=== PATIENT | female | born 1960 | race Caucasian/White ===

== ENCOUNTER → 2016-11-18 | Outpatient (CLI) | payer MEDICARE ==
--- NOTE | 2016-11-20 08:31 | MM ---
Reason for exam: screening (asymptomatic). Last mammogram was performed 1 year and 5 months ago. History: Patient is postmenopausal. Family history of breast cancer in maternal aunt at age 40. Benign core biopsy of the right breast. Took estrogen for 2 years. Physical Findings: Nurse did not find any significant physical abnormalities on exam. MG 3D Screening Mammo W/Cad Bilateral CC and MLO view(s) were taken. Prior study comparison: June 21, 2015, bilateral MG screening mammo w CAD. July 30, 2012, bilateral digital screening mammo w/CAD. August 02, 2010, bilateral digital screening mammogram. The breast tissue is heterogeneously dense. This may lower the sensitivity of mammography. There is chronic nodularity in the right breast. No significant changes when compared with prior studies. ASSESSMENT: Negative, BI-RAD 1 RECOMMENDATION: Routine screening mammogram of both breasts in 1 year.
== END | disposition home or self-care (01) ==
LOC: RADMAMWWP 15:02
PROVIDERS: ATTEND Obstetrics & Gynecology
DX: Z12.31 Encounter for screening mammogram for malignant neoplasm of breast (principal)
CPT/HCPCS: 77063; G0202

== ENCOUNTER → 2018-03-12 | Outpatient (CLI) | payer MEDICARE | END | disposition home or self-care (01) | LOC: LABWHC1 11:33 | PROVIDERS: ATTEND Psychiatry & Neurology Neurology | DX: G25.81 Restless legs syndrome (principal); T46.6X5A Adverse effect of antihyperlipidemic and antiarteriosclerotic drugs, initial encounter | CPT/HCPCS: 36415; 82550; 82728; 83540 ==

== ENCOUNTER → 2020-07-24 | Outpatient (CLI) | payer MEDICARE ==
--- NOTE | 2020-07-26 09:21 | MM ---
Reason for exam: screening (asymptomatic). Last mammogram was performed 3 years and 8 months ago. History: Patient is postmenopausal and history of other cancer. Family history of breast cancer in maternal aunt at age 40. Benign core biopsy of the right breast. Took estrogen for 2 years. Physical Findings: A clinical breast exam by your physician is recommended on an annual basis and results should be correlated with mammographic findings. MG 3D Screening Mammo W/Cad Bilateral CC and MLO view(s) were taken. Prior study comparison: November 18, 2016, bilateral MG 3d screening mammo w/cad. June 21, 2015, bilateral MG screening mammo w CAD. The breast tissue is heterogeneously dense. This may lower the sensitivity of mammography. There is chronic nodularity in the right breast. Lateral subareolar left CC view asymmetric density is more defined and incompletely disperses on 3D images. Second similar area laterally at a middle depth also on the left. ASSESSMENT: Incomplete: need additional imaging evaluation, BI-RAD 0 RECOMMENDATION: Special view mammogram of the left breast. (3D) If lesion persists on supplemental views, image directed ultrasound is recommended. [facility] will attempt to contact patient to return for supplemental views and ultrasound if indicated.
== END | disposition home or self-care (01) ==
LOC: RADMAMWWP 10:17
PROVIDERS: ATTEND Internal Medicine
DX: Z12.31 Encounter for screening mammogram for malignant neoplasm of breast (principal)
CPT/HCPCS: 77063; 77067

== ENCOUNTER → 2020-07-31 | Outpatient (CLI) | payer MEDICARE ==
--- NOTE | 2020-07-31 09:43 | MM ---
Reason for exam: additional evaluation requested from abnormal screening. Last mammogram was performed less than 1 month ago. History: Patient is postmenopausal and history of other cancer. Family history of breast cancer in maternal aunt at age 40. Benign excisional biopsy of the right breast. Took estrogen for 2 years. Physical Findings: Nurse did not find any significant physical abnormalities on exam. MG 3D Work Up W/Cad LT Spot compression CC, spot compression MLO, CCRL, and ML view(s) were taken of the left breast. Prior study comparison: July 24, 2020, bilateral MG 3d screening mammo w/cad. November 18, 2016, bilateral MG 3d screening mammo w/cad. There is no discrete abnormality including area of concern. These results were verbally communicated with the patient and result sheet given to the patient on 07/31/20. ASSESSMENT: Probably benign, BI-RAD 3 RECOMMENDATION: Follow-up diagnostic mammogram of the left breast in 6 months. Manage on a clinical basis with regard to left axilla dimple.
== END | disposition home or self-care (01) ==
LOC: RADMAMWWP 08:19
PROVIDERS: ATTEND Internal Medicine
DX: R92.8 Other abnormal and inconclusive findings on diagnostic imaging of breast (principal)
CPT/HCPCS: 77065; G0279; 77061

== ENCOUNTER → 2021-02-06 | Outpatient (CLI) | payer MEDICARE ==
--- NOTE | 2021-02-06 11:31 | MM ---
Reason for exam: follow-up at short interval from prior study. Last mammogram was performed 6 months ago. History: Patient is postmenopausal and history of other cancer. Family history of breast cancer in maternal aunt at age 40. Benign excisional biopsy of the right breast. Took estrogen for 2 years. Physical Findings: Nurse did not find any significant physical abnormalities on exam. MG 3D Diag Mammo W/Cad LT CC and MLO view(s) were taken of the left breast. Prior study comparison: July 31, 2020, left breast MG 3d work up w/cad LT. July 24, 2020, bilateral MG 3d screening mammo w/cad. The breast tissue is heterogeneously dense. This may lower the sensitivity of mammography. Nodule 12mm 2 o'clock 2.5cm from nipple, probably dense tissue. These results were verbally communicated with the patient and result sheet given to the patient on 02/06/21. ASSESSMENT: Incomplete: need additional imaging evaluation, BI-RAD 0 RECOMMENDATION: Ultrasound of the left breast.
--- NOTE | 2021-02-06 11:33 | USB ---
Reason for exam: additional evaluation requested from abnormal screening. History: Patient is postmenopausal and history of other cancer. Family history of breast cancer in maternal aunt at age 40. Benign excisional biopsy of the right breast. Took estrogen for 2 years. US Breast Limited LT Technologist: Erin Guerra Left limited breast ultrasound including focal area of concern, retroareolar and axilla demonstrates no cystic or solid lesion seen. No sonographic correlate. Follow up in 6 months. Due for bilateral. These results were verbally communicated with the patient and result sheet given to the patient on 02/06/21. ASSESSMENT: Probably benign, BI-RAD 3 RECOMMENDATION: Follow-up diagnostic mammogram of both breasts in 6 months.
== END | disposition home or self-care (01) ==
LOC: RADMAMWWP 08:06
PROVIDERS: ATTEND Internal Medicine
DX: R92.2 Inconclusive mammogram (principal); Z78.0 Asymptomatic menopausal state; Z80.3 Family history of malignant neoplasm of breast
CPT/HCPCS: 77065; 76642; G0279; 77061

== ENCOUNTER 2022-05-06 20:59 | Emergency (ER) | payer MEDICARE ==
[2022-05-06 21:10] VITALS: TEMP 98.1
--- NOTE | 2022-05-06 21:51 | ED ---
Dizziness HPI - General Chief Complaint: Dizziness Stated Complaint: Vertigo, Dizziness Time Seen by Provider: 05/06/22 21:11 Source: patient Mode of arrival: ambulatory Limitations: no limitations - History of Present Illness Initial Comments: This patient is a 62-year-old woman who presents with chief complaint of feeling dizzy going on her third day. The patient states that it as a spinning sensation. She states that at times it feels like she can't control her eyes. It tends to be made worse with rolling in bed or with getting up or sitting down rapidly. The patient denies any headache. She has not noted any weakness or numbness of the extremities or any change in speech or sensation. MD Complaint: dizziness Onset/Timin -: days(s) Timing: sudden onset Description: "room spinning", difficulty walking History of Same: No History of Trauma: No Severity: moderate Improves With: remaining still Worsens With: movement Associated Symptoms: denies other symptoms - Related Data Previous Rx's Medication Instructions Recorded Meclizine [Antivert] 25 mg PO TID PRN #15 tab 05/07/22 Allergies Allergy/AdvReac Type Severity Reaction Status Date / Time No Known Allergies Allergy Verified 05/06/22 21:10 Review of Systems ROS Statement: Those systems with pertinent positive or pertinent negative responses have been documented in the HPI. ROS Other: All systems not noted in ROS Statement are negative. Constitutional: Denies: fever, chills, weakness Eyes: Denies: eye pain, vision change ENT: Denies: ear pain, hearing loss Respiratory: Denies: cough, dyspnea Cardiovascular: Denies: chest pain, palpitations, orthopnea, edema, syncope Gastrointestinal: Reports: nausea. Denies: abdominal pain, vomiting, diarrhea Genitourinary: Denies: dysuria, hematuria Musculoskeletal: Denies: back pain Skin: Denies: rash Neurological: Reports: vertigo. Denies: headache, weakness, numbness, paresthesias Past Medical History Past Medical History: Cancer, CVA/TIA, Hypertension Additional Past Medical History / Comment(s): Restless leg, uterine CA History of Any Multi-Drug Resistant Organisms: None Reported Past Surgical History: Cholecystectomy, Orthopedic Surgery Past Psychological History: No Psychological Hx Reported Smoking Status: Current every day smoker Past Alcohol Use History: Occasional Past Drug Use History: Marijuana General Exam Limitations: no limitations General appearance: alert, in no apparent distress Head exam: Present: atraumatic, normocephalic Eye exam: Present: normal appearance, PERRL, EOMI, nystagmus. Absent: scleral icterus, conjunctival injection ENT exam: Present: normal oropharynx Neck exam: Present: normal inspection, full ROM. Absent: meningismus Respiratory exam: Present: normal lung sounds bilaterally. Absent: respiratory distress, wheezes, rales, rhonchi, stridor Cardiovascular Exam: Present: regular rate, normal rhythm, normal heart sounds. Absent: systolic murmur, diastolic murmur, rubs, gallop GI/Abdominal exam: Present: soft. Absent: distended, tenderness, guarding, rebound, rigid, mass Extremities exam: Present: normal inspection, normal capillary refill. Absent: pedal edema, calf tenderness Back exam: Present: normal inspection Neurological exam: Present: alert, oriented X3, CN II-XII intact. Absent: motor sensory deficit Skin exam: Present: warm, dry, intact, normal color. Absent: rash Course Vital Signs 05/06/22 21:06 Temperature 98.1 F Pulse Rate 83 Respiratory 24 Rate Blood Pressure 217/109 O2 Sat by Pulse 97 Oximetry EKG Findings - EKG Results: EKG: interpreted by ERMD, sinus rhythm (Rate 68 bpm), normal axis, normal QRS, normal ST/T, no acute changes Medical Decision Making - Lab Data Result diagrams: 05/06/22 22:09 05/06/22 22:09 Lab Results 05/06/22 05/06/22 05/06/22 Range/Units 22:09 22:09 22:09 WBC 4.5 (3.8-10.6) k/uL RBC 3.89 (3.80-5.40) m/uL Hgb 13.1 (11.4-16.0) gm/dL Hct 39.3 (34.0-46.0) % MCV 101.1 H (80.0-100.0) fL MCH 33.6 (25.0-35.0) pg MCHC 33.2 (31.0-37.0) g/dL RDW 13.6 (11.5-15.5) % Plt Count 266 (150-450) k/uL MPV 6.6 Neutrophils % 42 % Lymphocytes % 41 % Monocytes % 6 % Eosinophils % 6 % Basophils % 1 % Neutrophils # 1.9 (1.3-7.7) k/uL Lymphocytes # 1.9 (1.0-4.8) k/uL Monocytes # 0.3 (0-1.0) k/uL Eosinophils # 0.3 (0-0.7) k/uL Basophils # 0.1 (0-0.2) k/uL Macrocytosis Slight PT 9.9 (9.0-12.0) sec INR 0.9 (<1.2) APTT 23.6 (22.0-30.0) sec Sodium 136 L (137-145) mmol/L Potassium 4.2 (3.5-5.1) mmol/L Chloride 100 (98-107) mmol/L Carbon Dioxide 27 (22-30) mmol/L Anion Gap 9 mmol/L BUN 17 (7-17) mg/dL Creatinine 0.65 (0.52-1.04) mg/dL Est GFR (CKD-EPI)AfAm >90 (>60 ml/min/1.73 sqM) Est GFR (CKD-EPI)NonAf >90 (>60 ml/min/1.73 sqM) Glucose 103 H (74-99) mg/dL Calcium 9.5 (8.4-10.2) mg/dL Total Bilirubin 0.2 (0.2-1.3) mg/dL AST 21 (14-36) U/L ALT 11 (4-34) U/L Alkaline Phosphatase 71 (38-126) U/L Troponin I (0.000-0.034) ng/mL Total Protein 6.7 (6.3-8.2) g/dL Albumin 4.2 (3.5-5.0) g/dL 05/06/22 Range/Units 22:09 WBC (3.8-10.6) k/uL RBC (3.80-5.40) m/uL Hgb (11.4-16.0) gm/dL Hct (34.0-46.0) % MCV (80.0-100.0) fL MCH (25.0-35.0) pg MCHC (31.0-37.0) g/dL RDW (11.5-15.5) % Plt Count (150-450) k/uL MPV Neutrophils % % Lymphocytes % % Monocytes % % Eosinophils % % Basophils % % Neutrophils # (1.3-7.7) k/uL Lymphocytes # (1.0-4.8) k/uL Monocytes # (0-1.0) k/uL Eosinophils # (0-0.7) k/uL Basophils # (0-0.2) k/uL Macrocytosis PT (9.0-12.0) sec INR (<1.2) APTT (22.0-30.0) sec Sodium (137-145) mmol/L Potassium (3.5-5.1) mmol/L Chloride (98-107) mmol/L Carbon Dioxide (22-30) mmol/L Anion Gap mmol/L BUN (7-17) mg/dL Creatinine (0.52-1.04) mg/dL Est GFR (CKD-EPI)AfAm (>60 ml/min/1.73 sqM) Est GFR (CKD-EPI)NonAf (>60 ml/min/1.73 sqM) Glucose (74-99) mg/dL Calcium (8.4-10.2) mg/dL Total Bilirubin (0.2-1.3) mg/dL AST (14-36) U/L ALT (4-34) U/L Alkaline Phosphatase (38-126) U/L Troponin I <0.012 (0.000-0.034) ng/mL Total Protein (6.3-8.2) g/dL Albumin (3.5-5.0) g/dL Disposition Clinical Impression: Vertigo, Carotid stenosis Disposition: HOME SELF-CARE Condition: Good Instructions (If sedation given, give patient instructions): Vertigo (ED) Prescriptions: Meclizine [Antivert] 25 mg PO TID PRN #15 tab PRN Reason: Vertigo Is patient prescribed a controlled substance at d/c from ED?: No Referrals: Grabiel Belcher MD [Primary Care Provider] - 1-2 days Lisa Hunt DO [STAFF PHYSICIAN] - 1-2 days Brett Aguilera MD [STAFF PHYSICIAN] - 1-2 days
[2022-05-06 22:28] LABS: Basophils # (A) 0.1 k/uL (0-0.2); Basophils % (A) 1 %; Eosinophils # (A) 0.3 k/uL (0-0.7); Eosinophils % (A) 6 %; HCT 39.3 % (34.0-46.0); HGB 13.1 gm/dL (11.4-16.0); Lymphocytes # (A) 1.9 k/uL (1.0-4.8); Lymphocytes % (A) 41 %; MCH 33.6 pg (25.0-35.0); MCHC 33.2 g/dL (31.0-37.0); MCV 101.1 fL (80.0-100.0); Macrocytosis Slight; Mean Platelet Volume 6.6; Monocytes # (A) 0.3 k/uL (0-1.0); Monocytes % (A) 6 %; Neutrophils # (A) 1.9 k/uL (1.3-7.7); Neutrophils % (A) 42 %; Platelet Count 266 k/uL (150-450); RBC 3.89 m/uL (3.80-5.40); RDW 13.6 % (11.5-15.5); WBC 4.5 k/uL (3.8-10.6)
[2022-05-06 22:39] LABS: INR 0.9 (<1.2); Partial Thromboplastin Time 23.6 sec (22.0-30.0); Prothrombin Time 9.9 sec (9.0-12.0)
[2022-05-06 22:42] LABS: ALT 11 U/L (4-34); AST 21 U/L (14-36); African American GFR (CKD) >90 (>60 ml/min/1.73 sqM); Albumin 4.2 g/dL (3.5-5.0); Alkaline Phosphatase 71 U/L (38-126); Anion Gap 9 mmol/L; Blood Urea Nitrogen 17 mg/dL (7-17); Calcium 9.5 mg/dL (8.4-10.2); Carbon Dioxide 27 mmol/L (22-30); Chloride 100 mmol/L (98-107); Glucose 103 mg/dL (74-99); Non-African American GFR(CKD) >90 (>60 ml/min/1.73 sqM); Potassium 4.2 mmol/L (3.5-5.1); Sodium 136 mmol/L (137-145); Total Bilirubin 0.2 mg/dL (0.2-1.3); Total Protein 6.7 g/dL (6.3-8.2)
--- NOTE | 2022-05-06 23:17 | CT ---
EXAMINATION TYPE: CT brain wo con for TPA DATE OF EXAM: 05/06/2022 COMPARISON: None HISTORY: stroke symptoms. CT DLP: 1456.3 mGycm Automated exposure control for dose reduction was used. Images obtained of the brain with no contrast. Ventricles have normal size. There is no mass effect nor midline shift. There is no sign of intracran ial hemorrhage. The calvarium is intact but skull base is intact. IMPRESSION: Negative unenhanced head CT scan
--- NOTE | 2022-05-06 23:19 | XR ---
EXAMINATION TYPE: XR chest 1V portable DATE OF EXAM: 05/06/2022 COMPARISON: NONE HISTORY: Weakness TECHNIQUE: Single view FINDINGS: Heart is normal. Lungs are clear of infiltrate. No heart failure. There are no hilar masses . Thoracic aorta is atheromatous. IMPRESSION: No active cardiopulmonary disease. Normal heart.
--- NOTE | 2022-05-06 23:32 | CT ---
EXAMINATION TYPE: CT angio head neck DATE OF EXAM: 05/06/2022 COMPARISON: None HISTORY: Stroke symptoms CT DLP: mGycm Automated exposure control for dose reduction was used. CONTRAST: Performed with IV Contrast, patient injected with 65 mL of Isovue 370. Images obtained from the aortic arch to the vertex of the brain with the IV contrast. There are Three-D postprocessed images. There is normal branching pattern of the great vessels on the aortic arch. There is bilateral arteria l flow in the subclavian arteries. There is arterial flow in the common internal and external carotid arteries bilaterally. There is significant plaque formation at the right carotid artery bifurcation with approximately 70% stenosis at the origin of the right internal carotid artery. There is 10% narr owing of the origin left internal carotid artery. There is more than 50% stenosis of the origin right external carotid artery. There is arterial flow in both vertebral arteries. No evidence of carotid o r vertebral artery aneurysm or dissection. There is arterial flow in the vertebrobasilar artery syste m. There is arterial flow in the anterior middle and posterior cerebral arteries. There is no mass effec t. No evidence of intracranial aneurysm or neovascularity. No evidence of intracranial arterial steno sis. There is normal enhancement of the venous sinuses. IMPRESSION: There is apparent ulcerated plaque at the origin of the right internal carotid artery with approximat e 70% stenosis. 50% stenosis origin of the right external carotid artery. No significant intracranial angiographic abnormality.
[2022-05-06] MEDS ORDERED: ASPIRIN 81 MG PO STA (23:35)
[2022-05-06] MEDS ORDERED: MECLIZINE 12.5 MG TAB PO STA (23:43)
[2022-05-07] MEDS ORDERED: cloNIDine HCL 0.2 MG TAB PO STA (00:19)
[2022-05-07 01:08] VITALS: BP 182/96; PULSE 75; RESP 67
== END 2022-05-07 01:17 | disposition home or self-care (01) ==
LOC: EC 20:59
DX: I65.21 Occlusion and stenosis of right carotid artery (principal); F17.200 Nicotine dependence, unspecified, uncomplicated; I10 Essential (primary) hypertension; Z86.73 Personal history of transient ischemic attack (TIA), and cerebral infarction without residual deficits
CPT/HCPCS: 99284 ×2; 36415; 93005; 80053; 84484; 85025; 85610; 85730; 71045; 70496; 70450; 70498; Q9967

== ENCOUNTER → 2022-05-06 | Outpatient (CLI) | payer MEDICARE ==
--- NOTE | 2022-05-06 09:27 | MM ---
Reason for Exam: Follow-up at short interval from prior study. Last mammogram was performed 1 year(s) and 9 month(s) ago. Patient History: Menarche at age 12. First Full-Term at age 17. Left ovary removed at age 46. Right ovary removed at age 46. Hysterectomy at age 46. Postmenopausal. Other cancer. Patient used Estrogen for 2 years. Benign Excisional Biopsy on the right side. Maternal aunt had breast cancer, age 40. Risk Values: Joanie 5 year model risk: 1.3%. NCI Lifetime model risk: 5.1%. Prior Study Comparison: 01/02/2006 Screening Mammogram, [facility]. 10/09/2007 Screening Mammogram, [facility]. 08/02/2010 Bilateral Screening Mammogram, [facility]. 07/30/2012 Bilateral Screening Mammogram, [facility]. 06/21/2015 Bilateral Screening Mammogram, [facility]. 11/18/2016 Bilateral Screening Mammogram, [facility]. 07/24/2020 Bilateral Screening Mammogram, [facility]. 07/31/2020 Left Diagnostic Mammogram, [facility]. 02/06/2021 Left Diagnostic Mammogram, [facility]. 02/06/2021 Left Diagnostic Ultrasound, [facility]. Tissue Density: The breast tissue is heterogeneously dense. This may lower the sensitivity of mammography. Findings: Analyzed By CAD. Subareolar nodular asymmetric density left cc view remains unchanged for just under 2 years compatible with a benign etiology. Chronic nodularity one microclip right breast. No significant change from prior exams. Overall Assessment: Benign, BI-RAD 2 Management: Screening Mammogram of both breasts in 1 year. 1. Patient should continue monthly self breast exams. 2. A clinical breast exam by your physician is recommended on an annual basis. 3. This exam should not preclude additional follow-up of suspicious palpable abnormalities. Electronically signed and approved by: Miki Ugarte M.D. Radiologist
== END | disposition home or self-care (01) ==
LOC: RADMAMWWP 08:50
PROVIDERS: ATTEND Internal Medicine
DX: R92.8 Other abnormal and inconclusive findings on diagnostic imaging of breast (principal); Z78.0 Asymptomatic menopausal state; Z85.89 Personal history of malignant neoplasm of other organs and systems; Z80.3 Family history of malignant neoplasm of breast
CPT/HCPCS: 77066; G0279; 77062

== ENCOUNTER → 2022-12-13 | Outpatient (CLI) | payer MEDICARE ==
--- NOTE | 2022-12-13 10:33 | CTL ---
EXAMINATION TYPE: CT Low Dose Lung DATE OF EXAM ORDERED: 12/13/2022 HISTORY: [id number]. Lung cancer screening CT DLP: 52.[address] CTDI: 1.50 mGy Automated exposure control for dose reduction was used. SCREENING VISIT: First screening visit COMPARISON: None TECHNIQUE: Low dose computed tomography scan was performed through the chest at 1 mm thick sections a nd reconstructed images in multiple planes at 1 mm and [address] DIAGNOSTIC QUALITY: Satisfactory FINDINGS: LUNG NODULES: Spiculated nodular density within the anterior left upper lobe measuring up to 8 mm (se marina 3, image 74). LUNGS: COPD: Severity: Mild Fibrosis: Severity: None Lymph nodes: Mildly prominent precarinal lymph node measuring 9 mm short axis. Other findings: Left apical pleural-parenchymal scarring. RIGHT PLEURAL SPACE: Effusion: None Calcification: None Thickening: None Pneumothorax: None LEFT PLEURAL SPACE: Effusion: None Calcification: None Thickening: None Pneumothorax: None HEART: Heart Size: Normal Coronary Calcification: None Pericardial Effusion: None OTHER FINDINGS: Upper abdomen: None Bony thorax: No acute osseous abnormality. Partial visualization of anterior cervical fusion hardware . Supraclavicular region: None Other: Postcholecystectomy changes. Peripherally calcified hypodense 1.6 cm lesion within the region of the pancreatic tail (series 4, image 57). Additional punctate calcifications scattered throughout the pancreas. IMPRESSION: 1. Spiculated anterior left upper lobe 8 mm nodular density. 2. Peripheral calcified hypodense 1.6 under lesion within the pancreatic tail. This may represent a pancreatic cystic neoplasm versus splenic artery aneurysm. Further evaluation with CT or MR abdomen p ancreas mass protocol is recommended. CT LUNG RAD AND CT CHEST RECOMMENDATION: Lung-Rad 4B or 4X Very Suspicious: Follow-up Chest CT with o r without contrast or PET/CT and/or tissue sampling. PET/CT may be used when there is a > 8 mm solid component. Recommendation of impression #2 is described above.
== END | disposition home or self-care (01) ==
LOC: RADCTMAIN 08:40
PROVIDERS: ATTEND Family Medicine
DX: Z12.2 Encounter for screening for malignant neoplasm of respiratory organs (principal); F17.210 Nicotine dependence, cigarettes, uncomplicated; J98.4 Other disorders of lung; K86.89 Other specified diseases of pancreas
CPT/HCPCS: 71271

== ENCOUNTER → 2023-01-07 | Outpatient (CLI) | payer MEDICARE ==
--- NOTE | 2023-01-07 17:14 | CT ---
EXAMINATION TYPE: CT abdomen pelvis w con DATE OF EXAM: 01/07/2023 COMPARISON: None INDICATION: pancreatitis DLP: 460.3 mGycm, Automated exposure control for dose reduction was used. CONTRAST: 90ml mL of Isovue 300. Study performed with Oral Contrast TECHNIQUE: Axial images were obtained from above the diaphragm to the pubic rami in the axial plane a t 5 mm thick sections. Reconstructed images are reviewed on the computer in the coronal plane. FINDINGS: Limited CT sections are obtained the lung bases. The lung bases are clear. CT ABDOMEN: Liver: Normal Spleen: Normal Pancreas: There is a 1.3 cm cyst in the posterior tibial pancrease pseudocyst formation could be cons idered. Cystadenoma or cystadenocarcinoma is within the differential. This measures 26 [place] uni ts. Scattered calcifications are adjacent to the cyst as well as within the pancreas compatible some chronic pancreatitis. Adrenal glands: The adrenal glands are normal. Gallbladder: Surgically absent. Kidneys: No masses are evident. No hydronephrosis is present. No cysts are present. Delayed images were obtained through the kidneys, which remain unremarkable. Aorta: Fusiform prominence of the mid abdominal aorta with AP diameter 2.5 cm prevascular calcificati on as do the aorta. Inferior vena cava: Normal. CT PELVIS: Loops of bowel within the abdomen and pelvis are normal. There are loops of bowel which are incom pletely distended or lack oral contrast limiting their evaluation. Appendix: Normal as visualized. Urinary bladder: Normal. Genitourinary structures: Uterus and ovaries are not identified. Osseous structures: No suspicious lytic or sclerotic lesions. IMPRESSIONS: 1. Cystic lesion posterior tail of the pancreas. Pseudocyst, cyst, cystadenoma, cystadenocarcinoma b e considered within the differential. Additional workup is recommended.
== END | disposition home or self-care (01) ==
LOC: RADCTMAIN 13:59
PROVIDERS: ATTEND Internal Medicine Critical Care Medicine
DX: K86.1 Other chronic pancreatitis (principal); K86.89 Other specified diseases of pancreas
CPT/HCPCS: 74177; Q9967

== ENCOUNTER → 2023-01-17 | Outpatient (CLI) | payer MEDICARE ==
--- NOTE | 2023-01-20 05:54 | PE ---
EXAMINATION TYPE: PET CT fusion skull to thigh DATE OF EXAM: 01/17/2023 COMPARISON: Low-dose lung screening CT December 13, 2022. CT abdomen and pelvis January 07, 2023 HISTORY: Solitary pulmonary nodule, abnormal CT. TECHNIQUE: Following the intravenous administration of mCi of F-18 FDG, whole body images are perfor med from the skull base to the midthigh. Images are reviewed on the computer in the coronal, axial, and sagittal planes. Reconstructed rotating images are created on independent workstation and review ed on the computer. A localization and attenuation correction CT is performed in conjunction with t he PET scan. SCAN: Initial Scan FINDINGS: SKULL BASE AND NECK: No areas of abnormal hypermetabolic uptake. CHEST, MEDIASTINUM, AND HILAR REGION: Mild underlying emphysematous change is redemonstrated. Persist ent roughly 6 mm anterior spiculated nodule or scar like opacity left upper to mid lung axial image 7 0 has mild hypermetabolic uptake, max SUV is 2.24. Mild hypermetabolic uptake involving the AP window and prevascular lymph nodes, prevascular lymph nod e measures 1.6 x 1.1 cm axial image 70. Max SUV 3.25 in the AP window axial image 67. No additional areas of abnormal hypermetabolic uptake. ABDOMEN AND PELVIS: No hypermetabolic adrenal masses. Normal examination. No areas of suspicious abno rmal hypermetabolic uptake. OSSEOUS STRUCTURES: No areas of abnormal hypermetabolic uptake. OTHER CT: Moderate to severe calcified plaque right carotid bulb level is seen. Cholecystectomy clips are present. Focal 3.3 cm AAA axial image 133 is redemonstrated. Uterus is surg ically absent. Scattered pelvic phleboliths are seen. Stable thin-walled cyst or cystic lesion in the pancreatic tail measuring 1.5 cm axial image 118 shows no abnormal hypermetabolic uptake. Calcificat ions throughout the pancreatic gland are noted. Pseudocyst is favored. IMPRESSION: Nonspecific findings. Early neoplasm not entirely excluded but not convincing. Favor post infectious or inflammatory etiology. At minimum short-term CT follow-up in 3 months time is advised t o reassess.
== END | disposition home or self-care (01) ==
LOC: RADPETMAIN 12:04
PROVIDERS: ATTEND Family Medicine
DX: R91.1 Solitary pulmonary nodule (principal)
CPT/HCPCS: 78815; A9552

== ENCOUNTER 2023-02-06 08:02 | Day surgery (SDC) | payer MEDICARE ==
[~2023-02-06 08:02] MED LIST: LACTATED RINGERS 1,000 ML IV SCH
[2023-02-06] MEDS ORDERED: ONDANSETRON 4 MG/2 ML VIAL ONE (08:43)
[2023-02-06] MEDS ORDERED: DEXAMETHASONE SOD PHOSPHATE 4 MG/ML 1 ML VIAL IVP ONE (08:49)
[2023-02-06] MEDS ORDERED: ePHEDrine 50 MG/ML 1 ML VIAL ONE (09:29)
[2023-02-06] MEDS ORDERED: GLYCOPYRROLATE 0.2 MG/ML 2 ML VIAL ONE (09:29)
[2023-02-06] MEDS ORDERED: ROCURONIUM 10 MG/ML (5 ML VIAL) IV ONE (09:29)
[2023-02-06] MEDS ORDERED: MIDAZOLAM 2 MG/2 ML VIAL ONE (09:29)
[2023-02-06] MEDS ORDERED: LIDOCAINE 2% INJ 20 MG/ML (2 ML VIAL) ONE (09:29)
[2023-02-06] MEDS ORDERED: NEOSTIGMINE 1 MG/ML 10 ML VIAL ONE (09:29)
[2023-02-06] MEDS ORDERED: fentaNYL (PF) 50 MCG/ML 2 ML AMP ONE (09:29)
[2023-02-06] MEDS ORDERED: PROPOFOL 10 MG/ML 20 ML VIAL IV ONE (09:29)
--- NOTE | 2023-02-06 10:21 | P.PCN ---
Date of Procedure: 02/06/23 Operative Findings: Preoperative Diagnosis: mediastinal lymphadenopathy Postoperative Diagnosis: mediastinal lymphadenopathy Procedure(s) Performed: 1 flexible bronchoscopy, airway inspection 2 endoscopic ultrasound (EBUS) 3 transbronchial needle aspirate of station 4L and station 7 and precarinal lymph nodes Surgeon: Dom Allen Estimated Blood Loss (ml): 0 Pathology: other Condition: stable Disposition: same day Operative Findings: After obtaining the consent the patient was taken to the OR suite he was intubated and put on MV by anesthesia then the scope was advanced to the ET tube until the Trachea was seen and it was normal and then the lupillo appears normal then the scope advanced to the left main and MACHO LB1-LB3 were seen and no endobronchial lesions were seen then the scope advanced to the lingula and the LB4 and LB5 were seen and no endobronchial lesions were seen the scope retracted and advanced to the left lower lobes LB6 to LB12 were seen one by one and no endobronchial lesions, then the scope was retracted back to the lupillo and advanced to the Right main and RUL RB1 and RB2 and RB3 were seen one by one and no endobronchial lesions were seen the scope then retracted and advanced to the BI and RML RB4 and RB5 were seen and no endobronchial lesions were seen then it was retracted and advanced to the RLL RB6 to RB12 were seen one by one and no endobronchial lesions. Then EBUS was used and the lymph nodes were examined. Direct measurement of the mediastinal lymph nodes revealed a 8x7 mm station 4L lymph node, 8x10mm 11 R Superior lymph node, 9x11 mm station 7 lymph node. There was no visualized is patient 10 L and 4R . There was however another precarinal lymph node measuring 7 x 11 mm in size I performed transbronchial needle aspirate of station 4L and a total of 4 passes FNA , station 7 lymph nodes were a total of 4 passes and precarinal lymph node a total of 3 passes. No major bleeding and the scope was removed and taken out in total the patient was send to the floor in stable condition
[2023-02-06 10:28] VITALS: TEMP 97.9
[2023-02-06 11:22] VITALS: BP 115/77; PULSE 78; RESP 18
== END 2023-02-06 11:33 | disposition home or self-care (01) ==
LOC: ORWHC2ENDO 08:02
PROVIDERS: ATTEND Internal Medicine Critical Care Medicine
DX: J98.4 Other disorders of lung (principal); R59.0 Localized enlarged lymph nodes; I10 Essential (primary) hypertension; E78.2 Mixed hyperlipidemia; J44.9 Chronic obstructive pulmonary disease, unspecified; F17.210 Nicotine dependence, cigarettes, uncomplicated; F12.90 Cannabis use, unspecified, uncomplicated; Z86.73 Personal history of transient ischemic attack (TIA), and cerebral infarction without residual deficits; G25.81 Restless legs syndrome; Z79.899 Other long term (current) drug therapy; Z85.41 Personal history of malignant neoplasm of cervix uteri; I65.29 Occlusion and stenosis of unspecified carotid artery
CPT/HCPCS: 88305; 31652; 31629; J2250; J1100; J2710; J2405; J3010; J2704; J2001

== ENCOUNTER → 2023-03-12 | Outpatient (CLI) | payer MEDICARE ==
--- NOTE | 2023-03-12 22:16 | CT ---
EXAMINATION TYPE: CT chest wo con CT DLP: 167.4 mGycm, Automated exposure control for dose reduction was used. DATE OF EXAM: 03/12/2023 4:23 PM COMPARISON: CT 12/13/2022, PET/CT 01/09/2023 CLINICAL INDICATION:Female, 62 years old with history of R91.1; , Lung nodule follow up TECHNIQUE: Multiple axial images were obtained through the chest. Sagittal and coronal reformats were created for review. Contrast used: mL of (None if empty) Oral contrast used: (None if empty) FINDINGS: LUNGS/ PLEURA: Left lung nodule in the anterior aspect of the left upper lobe has a similar morpholog ic appearance with spiculations measuring up to 7 mm similar back to 12/13/2022. Mild centrilobular em physema changes are seen throughout the lungs. No additional suspicious pulmonary nodules. AIRWAY: Patent and unremarkable. HEART: Size within normal limits. MEDIASTINUM: Similar morphologic appearance and size of precarinal lymph node measuring 9 mm in short axis VASCULATURE: Atherosclerotic calcifications are present throughout the aorta and its branches. MUSCULOSKELETAL: Mild disc degeneration changes are present throughout the thoracolumbar spine. SOFT TISSUES/LYMPH NODES: Unremarkable. LOWER NECK: No significant findings. UPPER ABDOMEN: No significant findings. IMPRESSION: 1. Left lung nodule in the anterior aspect of the left upper lobe has a similar morphologic appearan ce with spiculations measuring up to 7 mm similar back to 12/13/2022. Continued short-term follow-up s urveillance recommended in 6 months given stability since 12/13/2022. 2. Mediastinal lymph nodes have a similar appearance compared to 12/13/2022
== END | disposition home or self-care (01) ==
LOC: RADCTMAIN 16:09
PROVIDERS: ATTEND Family Medicine
DX: R91.1 Solitary pulmonary nodule (principal); R59.1 Generalized enlarged lymph nodes
CPT/HCPCS: 71250

== ENCOUNTER → 2023-05-07 | Outpatient (CLI) | payer MEDICARE ==
--- NOTE | 2023-05-08 09:46 | MM ---
Reason for Exam: Screening (asymptomatic). Last screening mammogram was performed 12 month(s) ago. Patient History: Menarche at age 12. First Full-Term at age 17. Left ovary removed at age 46. Right ovary removed at age 46. Hysterectomy at age 46. Postmenopausal. Patient has history of breast feeding. Patient used Estrogen for 2 years. Benign Excisional Biopsy on the right side. Maternal aunt had breast cancer, age 40. Risk Values: Joanie 5 year model risk: 1.3%. NCI Lifetime model risk: 4.9%. Prior Study Comparison: 07/31/2020 Left Diagnostic Mammogram, [facility]. 02/06/2021 Left Diagnostic Mammogram, [facility]. 05/06/2022 Bilateral MG 3D diag mammo w/cad NAVID, [facility]. Tissue Density: The breast tissue is heterogeneously dense. This may lower the sensitivity of mammography. Findings: Analyzed By CAD. There is no suspicious group of microcalcifications or new suspicious mass in either breast. Chronic nodularity within both breasts. Biopsy clip within the right breast. Overall Assessment: Benign, BI-RAD 2 Management: Screening Mammogram of both breasts in 1 year. A clinical breast exam by your physician is recommended on an annual basis and results should be correlated with mammographic findings. Note on Joanie scores and lifetime risk: 1. A Joanie score greater than 3% is considered moderate risk. If this is the case, consider specialist referral to assess eligibility for a risk reducing agent. If overall lifetime risk for the development of breast cancer is 20% or higher, the patient may qualify for future screening with alternating mammogram and breast MRI. Electronically signed and approved by: Azam Martinez D.O.
== END | disposition home or self-care (01) ==
LOC: RADMAMWWP 10:58
PROVIDERS: ATTEND Family Medicine
DX: Z12.31 Encounter for screening mammogram for malignant neoplasm of breast (principal); Z78.0 Asymptomatic menopausal state; Z80.3 Family history of malignant neoplasm of breast
CPT/HCPCS: 77063; 77067

== ENCOUNTER 2023-05-09 12:33 | Day surgery (SDC) | payer MEDICARE ==
[2023-05-06 14:48] VITALS: BMI 24.0
[2023-05-09] MEDS ORDERED: LIDOCAINE 1% (10MG/ML) FOR IV START INTRADERMA PRN (13:07)
[2023-05-09] MEDS ORDERED: LACTATED RINGERS 1,000 ML IV SCH (13:07)
[2023-05-09 13:21] VITALS: RESP 16; TEMP 98.3
[2023-05-09] MEDS ORDERED: PROPOFOL 10 MG/ML 20 ML VIAL IV ONE (14:48)
--- NOTE | 2023-05-09 15:12 | P.PCN ---
Date of Procedure: 05/09/23 Procedure(s) Performed: BRIEF HISTORY: Patient is a a 3-year-old pleasant white female scheduled for an elective colonoscopy as a part of evaluation of prior history of colon polyps. PROCEDURE PERFORMED: Colonoscopy With snare polyp rectum PREOPERATIVE DIAGNOSIS: History of colon polyps. IV sedation per Anesthesia. PROCEDURE: After informed consent was obtained, the patient, was brought into the endoscopy unit. IV sedation was administered by Anesthesia under continuous monitoring. Digital rectal examination was normal. Initially the Olympus CF-160 flexible video colonoscope was then inserted in the rectum, gradually advanced into the cecum without any difficulty. Careful examination was performed as the scope was gradually being withdrawn. Ileocecal valve and the appendiceal orifice were visualized and appeared normal. Prep was excellent. Mucosa of the cecum normal. In the ascending colon there was a 7 mm flat polyp removed by snare polypectomy. Rest of the scattered sigmoid diverticulosis. , ascending colon, transverse colon, descending colon, sigmoid colon, and rectum appeared normal. Retroflexion was performed in the rectum and no lesions were seen. The patient tolerated the procedure well. IMPRESSION: 7 mm flat ascending colon polyp status post polypectomy Scattered sigmoid diverticulosis RECOMMENDATIONS: Findings of this examination were discussed with the patient as well as her family. She was advised to follow with the biopsy results. If the biopsy reveals adenoma she can have a repeat colonoscopy in 5 years.
[2023-05-09 15:30] VITALS: BP 136/89; PULSE 70
== END 2023-05-09 16:01 | disposition home or self-care (01) ==
LOC: ORWHC2ENDO 12:33
PROVIDERS: ATTEND Internal Medicine Gastroenterology
DX: Z12.11 Encounter for screening for malignant neoplasm of colon (principal); K57.30 Diverticulosis of large intestine without perforation or abscess without bleeding; Z86.010 Personal history of colon polyps
CPT/HCPCS: 88305; 45385; J2704

== ENCOUNTER → 2023-07-24 | Outpatient (CLI) | payer MEDICARE ==
[2023-07-24 14:07] LABS: African American GFR (CKD) 87 (>60 ml/min/1.73 sqM); Blood Urea Nitrogen 25 mg/dL (7-17); Non-African American GFR(CKD) 75 (>60 ml/min/1.73 sqM)
--- NOTE | 2023-07-24 16:42 | CT ---
EXAMINATION TYPE: CT chest w con DATE OF EXAM: 07/24/2023 COMPARISON: 03/12/2023 HISTORY: f/u nodules CT DLP: 125.5 mGycm, Automated exposure control for dose reduction was used. CONTRAST: Performed injected with 100 mL of Isovue 370. TECHNIQUE: Axial images were obtained at 5 mm thick sections. Reconstructed images are reviewed on [employer] computer in the coronal plane. FINDINGS: Portion of the thyroid visualized is normal. There is a 0.5 cm nodular density within the anterior left upper lobe near the pleural margin. This a ppears to be increasing density over the interval. Consider PET CT for additional evaluation. Emphysematous changes are present. No enlarged mediastinal or hilar adenopathy is evident. The ascending aorta diameter at the level o f the main pulmonary artery is 3.2 cm. The main pulmonary artery diameter at the bifurcation is 2.[address] sections are obtained through the upper abdomen. Abdomen is essentially unremarkable. IMPRESSION: 1. Increasing density of a small nodule anterior lateral left upper lobe. Consider evaluation with PE T/CT. 2. COPD
== END | disposition home or self-care (01) ==
LOC: RADCTMAIN 13:20
PROVIDERS: ATTEND Internal Medicine Critical Care Medicine
DX: J44.9 Chronic obstructive pulmonary disease, unspecified (principal); J98.4 Other disorders of lung; R91.1 Solitary pulmonary nodule
CPT/HCPCS: 82565; 84520; 71260; 36415; Q9967

== ENCOUNTER → 2023-09-29 | Outpatient (CLI) | payer MEDICARE ==
--- NOTE | 2023-10-01 22:03 | MR ---
EXAMINATION TYPE: MR pancreas wo/w con DATE OF EXAM: 09/29/2023 4:20 PM CLINICAL INDICATION:Female, 63 years old with history of K86.2 CYST OF PANCREAS; Cyst on Pancreas, Hx of cervical and uterine cancer, Hx Hystero 2004 COMPARISON: CT 07/24/2023, PET/CT 01/09/2023, CT 01/07/2023. TECHNIQUE: Multiplanar multi-sequence imaging was performed without contrast. Post contrast imaging was performed. Post IV contrast subtraction images were also submitted for review. IV Contrast: 5.5 cc Gadobutrol FINDINGS: LOWER CHEST: No gross irregularity. ABDOMEN Liver: No evidence for hepatic steatosis or cirrhosis. Signal dropout on chemical shift in phase imag ing. Gallbladder and Bile ducts: No evidence for ductal dilation, or biliary stricture or evidence of chol edocholithiasis. The gallbladder appears surgically absent with susceptibility artifact in the gallbl adder fossa. Pancreas: No ductal dilation. No evidence for solid mass.r site of the pancreatic tail measuring 4 mm near the pancreatic neck/body measuring 6 mm. No abnormal postcontrast enhancement. Large cystic les ion in the pancreatic tail seen on 01/07/2023 demonstrates intermediate T2 signal and lower T1 signal measuring 14 x 14 mm without postcontrast imaging on subtraction imaging. Spleen: Signal dropout on chemical shift in phase imaging. Adrenal glands: Unremarkable. Kidneys: No evidence for obstructive uropathy. No suspicious renal masses. Stomach and Bowel: No evidence for bowel wall thickening or evidence for obstruction.. Peritoneum: No evidence of pneumoperitoneum or free fluid. Vasculature: Fusiform aortic aneurysmal dilation up to 3.1 cm below the level of the renal arteries. Musculoskeletal: The osseous structures appear intact. Lymph Nodes: No gross evidence for lymphadenopathy. Abdominal wall: Fat-containing umbilical hernia. IMPRESSION: 1. No evidence for lymphadenopathy or suspicious intra-abdominal mass. 2. Stable pancreatic tail cystic lesion measuring 14 mm is without suspicious postcontrast enhanceme nt. 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 3. Deposition within the liver and spleen. 4. Infrarenal abdominal aortic fusiform dilation measuring up to 3.1 cm.
== END | disposition home or self-care (01) ==
LOC: RADMRIMAIN 15:17
PROVIDERS: ATTEND Internal Medicine Gastroenterology
DX: I71.33 Infrarenal abdominal aortic aneurysm, ruptured (principal); K86.2 Cyst of pancreas
CPT/HCPCS: 74183; A9585

== ENCOUNTER → 2024-01-30 | Outpatient (CLI) | payer MEDICARE ==
[2024-01-30 08:23] LABS: African American GFR (CKD) >90 (>60 ml/min/1.73 sqM); Blood Urea Nitrogen 20 mg/dL (7-17); Non-African American GFR(CKD) >90 (>60 ml/min/1.73 sqM)
--- NOTE | 2024-01-30 17:50 | CT ---
EXAMINATION TYPE: CT chest w con CT DLP: 270 mGycm, Automated exposure control for dose reduction was used. DATE OF EXAM: 01/30/2024 9:02 AM COMPARISON: CT chest 07/24/2023, 03/12/2023, PET/CT 01/17/2023 CLINICAL INDICATION:Female, 63 years old with history of R91.1 SOLITARY PULMONARY NODULE; PHH, pulmon liu nodule TECHNIQUE: Multiple axial images were obtained through the chest following the administration of 100 cc of Isovue 300. . Coronal and sagittal reformats reviewed. FINDINGS: LUNGS/ PLEURA: Left lung nodule in the anterior aspect of the left upper lobe has a similar morpholog ic appearance with spiculations measuring up to 1.1 cm when measured with similar technique. Mild pippa trilobular emphysema changes are seen throughout the lungs. No additional suspicious pulmonary nodule s. Right lower lobe subsegmental atelectasis with fat filled Bochdalek hernia. No pleural effusion. AIRWAY: Patent and unremarkable. HEART: Size within normal limits. MEDIASTINUM: Similar morphologic appearance and size of precarinal lymph node measuring 9 mm in short axis VASCULATURE: Atherosclerotic calcifications are present throughout the aorta and its branches. MUSCULOSKELETAL: Mild disc degeneration changes are present throughout the thoracolumbar spine. Parti al visualization of cervical fusion hardware. Remote left-sided rib fractures. No aggressive osseous lesion. SOFT TISSUES/LYMPH NODES: Unremarkable. LOWER NECK: No significant findings. UPPER ABDOMEN: Postcholecystectomy changes. Multiple calcifications demonstrated throughout the pancr eas likely sequela of chronic pancreatitis. Stable 1.4 cm hypodense lesion within the pancreatic tail . IMPRESSION: 1. Relatively stable size of left anterior upper lobe irregular spiculated nodule/scar. No new nodule s identified. Continued follow-up is recommended with CT chest in 6-12 months. 2. Sequelae chronic pancreatitis with a 1.4 cm stable lesion within the pancreatic tail which likely represents a pseudocyst versus IPMN. 3. Stable 3.3 cm infrarenal abdominal aortic aneurysm.
== END | disposition home or self-care (01) ==
LOC: RADCTMAIN 07:47
PROVIDERS: ATTEND Family Medicine
DX: I71.43 Infrarenal abdominal aortic aneurysm, without rupture (principal); K86.89 Other specified diseases of pancreas; K86.1 Other chronic pancreatitis; R91.1 Solitary pulmonary nodule
CPT/HCPCS: 82565; 84520; 71260; 36415; Q9967

== ENCOUNTER → 2024-11-25 | Outpatient (CLI) | payer MEDICARE ==
--- NOTE | 2024-11-25 10:05 | XR ---
EXAMINATION TYPE: XR cervical spine limited DATE OF EXAM: 11/25/2024 9:50 AM INDICATION: Patient age:Female; 64 years old; Reason for study: M54.2 CERVICALGIA; PHH, pain COMPARISON: Cervical spine radiograph 12/16/2012 TECHNIQUE: The cervical spine was imaged in 3 projections. Frontal, lateral, and odontoid. FINDINGS: Postsurgical changes of the cervical spine from anterior fusion involving C5-C7. Hardware appears int act with stable alignment. Grade 2 anterolisthesis of C3 on C4 has developed. No acute fracture. Ther e is disc space narrowing with endplate sclerosis at C3-C4. Bilateral facet arthropathy at C3-C4. Ped icles are intact. Soft tissues are within normal limits. The odontoid appears intact. IMPRESSION: 1. No fracture or dislocation. 2. Postsurgical changes from anterior cervical fusion C5-C7. Hardware appears intact. 3. Development of grade 2 anterolisthesis of C3 on C4 with moderate degenerative disc disease and fac et arthropathy at this level. [facility], , 11/25/2024 10:03 AM
== END | disposition home or self-care (01) ==
LOC: RADXRMAIN 09:29
PROVIDERS: ATTEND Family Medicine
DX: M43.12 Spondylolisthesis, cervical region (principal); M47.812 Spondylosis without myelopathy or radiculopathy, cervical region; M50.31 Other cervical disc degeneration, high cervical region; Z98.1 Arthrodesis status
CPT/HCPCS: 72040

== ENCOUNTER → 2024-12-27 | Outpatient (CLI) | payer MEDICARE ==
--- NOTE | 2024-12-28 22:06 | MR ---
EXAMINATION TYPE: MR brain/cspine wo DATE OF EXAM: 12/27/2024 12:11 PM COMPARISON: 05/06/2022 CT brain CLINICAL INDICATION: Female, 64 years old with history of M54.2 CERVICALGIA, R51.9 HEADACHE, UNSPECIF IED, Headaches, dizziness, eye pain TECHNIQUE: Multiplanar, multiecho imaging on a 3.0 Jinny magnet is performed through the brain. Stud y is performed within 24 hours of arrival to the hospital.Multiplanar, multiecho imaging on a 3.0 Nani la magnet is performed through the knee. IV Contrast: mL (None, if empty) FINDINGS: The craniovertebral junction is normal. The pituitary is normal. Diffusion-weighted imaging is performed. No abnormal hyperintensity is present to suggest an acute i ntracranial infarct or acute ischemic change. There are scattered punctate areas of hyperintensity on T2 and Inversion Recovery weighted sequences which are non-specific but can be related to microvascular ischemic changes. Ventricles and sulci are appropriate for the patient age. IMPRESSION: 1. Scattered punctate periventricular white matter ischemic type changes. EXAMINATION TYPE: MR brain/cspine wo DATE OF EXAM: 12/27/2024 12:11 PM COMPARISON: 11/03/2012 CLINICAL INDICATION: Female, 64 years old with history of M54.2 CERVICALGIA, R51.9 HEADACHE, UNSPECIF IED, Headaches, dizziness, eye pain TECHNIQUE: Multiplanar multiecho imaging on a 3.0 Jinny magnet is performed through the cervical spin e. IV Contrast: mL (None, if empty) FINDINGS: The craniovertebral junction is normal. Vertebral body alignment has a grade 1 spondylolis thesis of C3 anteriorly on C4. Anterior cervical fusion is present C5-C7. T1-2: There is a right paracentral to right lateral disc bulge with mild anterior thecal sac compress ion. No spinal canal stenosis or cord contact is evident. Endplate spurring is present C3-4 with anterior thecal sac flattening. This may be greater into the r ight paracentral to right lateral direction. Bilateral foraminal stenosis is present. Mild cord conta ct is present. IMPRESSION: 1. Grade 1 spondylolisthesis of C3 anteriorly on C4. Disc uncovering is present with some endplate sp urring are noted in the right paracentral region with moderate anterior thecal sac compression and co rd contact. Bilateral foraminal stenosis is present [facility], , 12/28/2024 10:04 PM
== END | disposition home or self-care (01) ==
LOC: RADMRIMAIN 11:13
PROVIDERS: ATTEND Family Medicine
DX: I67.82 Cerebral ischemia (principal); M43.12 Spondylolisthesis, cervical region; M99.71 Connective tissue and disc stenosis of intervertebral foramina of cervical region
CPT/HCPCS: 70551; 72141

== ENCOUNTER → 2025-02-01 | Outpatient (CLI) | payer MEDICARE ==
--- NOTE | 2025-02-01 09:51 | XR ---
EXAMINATION TYPE: XR chest 2V DATE OF EXAM: 02/01/2025 9:40 AM COMPARISON: 05/06/2022 CLINICAL INDICATION: Female, 64 years old with history of Z01.818 PRE OP, scheduled for cervical spin e surgery TECHNIQUE: Frontal and lateral views FINDINGS: Heart upper limits of normal in size. Mild hyperinflation and mild interstitial prominence. Hazy lowe r lung densities relating to overlying soft tissue. No consolidation or pleural effusion. Atheroscler otic arch calcifications. ACDF hardware. IMPRESSION: Possible underlying COPD. Clinically correlate. No acute process seen. [facility], Workstation: [facility], 02/01/2025 9:49 AM
[2025-02-01 10:04] LABS: INR 0.9 (<1.2); Partial Thromboplastin Time 23.6 sec (22.0-30.0); Prothrombin Time 10.3 sec (10.0-12.5)
[2025-02-01 15:14] LABS: Appearance,Urine Clear (Clear); Bilirubin,Urine Negative (Negative); Blood,Urine Negative (Negative); Color,Urine Yellow (Yellow); Ketones,Urine Negative (Negative); Nitrite,Urine Negative (Negative); Specific Gravity,Urine 1.023 (1.001-1.030)
[2025-02-01 15:50] LABS: BUN/Creat Ratio 35.67 Ratio (12.00-20.00); Blood Urea Nitrogen 21.4 mg/dL (9.0-27.0); Calcium 9.3 mg/dL (8.7-10.3); Carbon Dioxide 22.9 mmol/L (21.6-31.8); Chloride 106 mmol/L (96-109); Glucose 178 mg/dL (70-110); Potassium 4.3 mmol/L (3.5-5.5); Sodium 141 mmol/L (135-145)
[2025-02-01 15:56] LABS: Basophils # (A) 0.05 X 10*3/uL (0.00-0.10); Basophils % (A) 0.7 %; Eosinophils # (A) 0.17 X 10*3/uL (0.04-0.35); Eosinophils % (A) 2.5 %; HCT 41.6 % (37.2-46.3); HGB 13.5 g/dL (12.0-15.0); Lymphocytes # (A) 1.47 X 10*3/uL (0.90-5.00); MCH 31.5 pg (27.0-32.0); MCHC 32.5 g/dL (32.0-37.0); Mean Platelet Volume 8.9 FL (9.5-12.2); Monocytes # (A) 0.53 X 10*3/uL (0.20-1.00); Monocytes % (A) 7.9 %; NRBC Per 100 WBC 0 X 10*3/uL (0.00-0.01); Neutrophils # (A) 4.46 X 10*3/uL (1.80-7.70); Neutrophils % (A) 66.8 %; Platelet Count 291 X 10*3/uL (140-440); RBC 4.29 X 10*6/uL (4.10-5.20); RDW 13.1 % (11.5-14.5); WBC 6.69 X 10*3/uL (4.50-10.00)
== END | disposition home or self-care (01) ==
LOC: LABPAT 09:11
PROVIDERS: ATTEND Orthopaedic Surgery Orthopaedic Surgery of the Spine
DX: Z01.818 Encounter for other preprocedural examination (principal); M48.02 Spinal stenosis, cervical region; Z22.322 Carrier or suspected carrier of Methicillin resistant Staphylococcus aureus
CPT/HCPCS: 71046; 80048; 81003; 85025; 85610; 85730; 86850; 86900; 86901; 87070

== ENCOUNTER → 2025-04-04 | Outpatient (CLI) | payer MEDICARE ==
[2025-04-04] MEDS: DENOSUMAB 60 MG/ML 1 ML SYRINGE SQ NR (11:20)
[2025-04-04 11:26] VITALS: BP 118/80; PULSE 80; RESP 16; TEMP 98.8
== END ==
LOC: PROCWHC3 11:06
PROVIDERS: ATTEND Family Medicine
DX: M85.80 Other specified disorders of bone density and structure, unspecified site (principal)
CPT/HCPCS: 96372; J0897